=== PATIENT | male | born 1950 | race Caucasian/White ===

== ENCOUNTER 2021-11-24 07:56 | Outpatient (CLI) | payer MEDICARE ==
[2021-11-24 23:42] LABS: SARS-CoV-2 PCR by NAA Not Detected (NotDetected)
== END 2021-11-24 07:57 | disposition home or self-care (01) ==
LOC: LABBT 07:56
PROVIDERS: ATTEND Neurological Surgery
DX: Z01.818 Encounter for other preprocedural examination (principal); M54.16 Radiculopathy, lumbar region; Z20.822 Contact with and (suspected) exposure to COVID-19
CPT/HCPCS: 93005; U0003; U0005; 93010

== ENCOUNTER 2021-11-27 05:39 | Day surgery (SDC) | payer MEDICARE ==
[2021-11-24 12:06] VITALS: BMI 28.0
[2021-11-27] MEDS ORDERED: Fentanyl 250 MCG/5 ML VIAL ONE ×2 (06:33→08:52)
[2021-11-27] MEDS ORDERED: EPINEPHrine 1 MG/ML AMP ONE (06:38)
[2021-11-27] MEDS ORDERED: Bupivacaine PF 0.5% 30 ML VIAL ONE (06:38)
[2021-11-27] MEDS ORDERED: Thrombin 5000 UNITS/5 ML VIAL ONE (06:38)
[2021-11-27] MEDS ORDERED: ceFAZolin 2 GM/DEX 5% 100 ML BAG ONE ×2 (06:53→11:04)
[2021-11-27] MEDS ORDERED: PHENYLEPHRINE-NS 100 MCG/ML 10 ML SYRINGE ONE (07:10)
[2021-11-27] MEDS ORDERED: Lidocaine 1% PF 5 ML VIAL ONE (07:10)
[2021-11-27] MEDS ORDERED: GLYCOPYRROLATE/PF 0.2 MG/ML VIAL ONE (07:10)
[2021-11-27] MEDS ORDERED: Rocuronium Bromide 10 MG/ML (10ML VIAL) ONE (07:10)
[2021-11-27] MEDS ORDERED: ePHEDrine 50 MG/ML VIAL ONE (07:10)
[2021-11-27] MEDS ORDERED: Dexamethasone 20 MG/5 ML VIAL ONE (07:10)
[2021-11-27] MEDS ORDERED: PROPOFOL 200 MG/20 ML VIAL ONE (07:10)
[2021-11-27] MEDS ORDERED: Ondansetron PF 4 MG/2 ML Vial ONE (07:10)
[2021-11-27] MEDS ORDERED: Promethazine HCl 25 MG/ML VIAL ONE (10:24)
[2021-11-27] MEDS ORDERED: Morphine 4 MG/ML VIAL ONE (10:24)
[2021-11-27] MEDS ORDERED: HYDROcodone/Acetaminophen 5/325 mg Tablet ONE ×2 (11:04→11:48)
== END 2021-11-27 12:20 | disposition home or self-care (01) ==
LOC: SDC 05:39
PROVIDERS: ATTEND Neurological Surgery
PROC: 01NB0ZZ Release Lumbar Nerve, Open Approach (ICD-10-PCS; principal; 2021-11-27)
DX: M48.061 Spinal stenosis, lumbar region without neurogenic claudication (principal); M54.16 Radiculopathy, lumbar region; G47.30 Sleep apnea, unspecified; G89.4 Chronic pain syndrome; M19.90 Unspecified osteoarthritis, unspecified site; I10 Essential (primary) hypertension; Z85.6 Personal history of leukemia; Z87.891 Personal history of nicotine dependence; Z79.899 Other long term (current) drug therapy; Z88.1 Allergy status to other antibiotic agents; Z88.6 Allergy status to analgesic agent; Z88.8 Allergy status to other drugs, medicaments and biological substances; Z91.048 Other nonmedicinal substance allergy status; Z94.84 Stem cells transplant status
CPT/HCPCS: 76000; J0171; J1100; J2270; J2405; J2550; J2704; J3010; J3490; S0020

== ENCOUNTER 2022-05-10 09:59 | Outpatient (CLI) | payer MEDICARE | END 2022-05-10 10:00 | disposition home or self-care (01) | LOC: SCSMRI 09:59 | PROVIDERS: ATTEND Podiatrist Foot & Ankle Surgery | DX: M76.821 Posterior tibial tendinitis, right leg (principal); M19.071 Primary osteoarthritis, right ankle and foot; M65.9 Synovitis and tenosynovitis, unspecified ==